=== PATIENT | male | born 1985 | race Caucasian/White ===

== ENCOUNTER 2016-08-31 18:53 | Inpatient (IN) | payer OTHER ==
[~2016-08-31] VITALS: Ht 182.9 cm; Wt 63.5 kg
[2016-08-31 19:00] VITALS: BP 94/54
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
[2016-08-31] MEDS ORDERED: NACL 0.9% 1,000 ML IV ONE ×3 (19:30→22:45)
[2016-08-31] MEDS ORDERED: LORazepam 2 MG/ML VIAL IM ONE (19:35)
--- NOTE | 2016-08-31 21:12 | NUR ---
PT CONTINUES TO REFUSE IV FLUIDS AND TO PROVIDE A URINE SAMPLE. IV STARTED ON R FOREARM, BLOOD DRAWN WELL. NIKOLAI ATKINSON NOTIFIED.
--- NOTE | 2016-08-31 22:04 | NUR ---
FAMILY AT BED SIDE, PT RECEIVING IV FLUIDS, ER MD SPEAKING TO FAMILY.
[2016-08-31] MEDS ORDERED: PIPERACILLIN/TAZOBACTAM 3.375 GM in DEXTROSE 5% 50 ML IV ONE (22:10)
[2016-08-31] MEDS ORDERED: VANCOMYCIN 1,000 MG in DEXTROSE 5% 250 ML IV ONE (22:10)
[2016-08-31] MEDS ORDERED: LORazepam 2 MG/ML VIAL IVP ONE (22:15)
[2016-08-31] MEDS ORDERED: ACETAMINOPHEN EXTRA STRENGTH 500 MG TAB PO ONE (22:15)
[2016-08-31] MEDS ORDERED: HALOPERIDOL IM 5 MG/ML VIAL IM ONE (22:15)
[2016-08-31] MEDS ORDERED: PIPERACILLIN/TAZOBACTAM 3.375 GM VIAL IV ONE ×2 (22:21→22:23)
[2016-08-31] MEDS ORDERED: VANCOMYCIN 1,000 MG VIAL ONE (22:23)
[2016-08-31] MEDS ORDERED: NACL 0.9% 1,000 ML IV SCH (22:45)
[2016-08-31] MEDS ORDERED: HYDROcodone/APAP 5/325 MG 1 TAB TAB PO PRN (22:45)
[2016-08-31] MEDS ORDERED: LORazepam 2 MG/ML VIAL IVP PRN (22:45)
[2016-08-31] MEDS ORDERED: ONDANSETRON 4 MG/2 ML VIAL IVP PRN (22:45)
[2016-08-31] MEDS ORDERED: ACETAMINOPHEN 325 MG TAB PO PRN (22:45)
[2016-08-31] MEDS ORDERED: MORPHINE SULFATE 2 MG/ML SYR IVP PRN (22:45)
--- NOTE | 2016-08-31 23:02 | NUR ---
PT SLEEPING, VSS, RECEIVING IV FLUIDS AND ANTIBIOTICS. FAMILY LEFT, PT ON MONITOR WILL CONT TO MONITOR.
--- NOTE | 2016-08-31 23:16 | NUR ---
Patient will be admitted to care of [facility]. Admited to TELEMETRY. Will go to room 121 B. Belongings list completed. Report to MARISOL BARRIOS.
[2016-09-01 00:05] VITALS: BP 60/36
--- NOTE | 2016-09-01 00:05 | NUR ---
PT ARRIVED ON UNIT IN UNSTABLE CONDITION. MARISOL AZUL STATED THAT PTS SBP UPON LEAVING ER WAS 89, BOLUS ORDERED BY MD CHESTER NOT GIVEN, IV BAG AT BEDSIDE. BLOOD PRESSURE 60/36, HR 97, O2 SAT 95 ON ROOM AIR. TEMP 99. PLACED PT IN [place] AND STARTED IV BOLUS TO RT HAND 20G IV PATENT, ASYMPTOMATIC, INTACT. NO SOB, NO SIGNS OF DISTRESS PT IS ALOC, WITHDRAWS TO PAINFUL STIMULI. SKIN IS INTACT. ORIENTED PT TO ROOM AND UNIT PLACED PT ON FALL PRECAUTIONS. PLAN OF CARE DISCUSSED WITH PT. SAFETY MEASURES IN PLACE. AT BEDSIDE MONITORING PT.
--- NOTE | 2016-09-01 00:09 | NUR ---
PT TRASFERRED TO TELEMETRY ROOM 121 B, AACOMPANIED BY RN AND EMT. C ARCHITECT IN BED, NO S/S OF DISTRESS NOTE DURING TRASPORT.
--- NOTE | 2016-09-01 00:35 | NUR ---
BP 66/38, HR 95, 02 98. PAGED MD ROMO CLARIFYING PLANT OPERATOR FOR MD CELAYA TO MAKE AWARE, ORDERED BOLUS AND NS AT 200 ML/HR. WILL CONTINUE TO MONITOR.
[2016-09-01] MEDS ORDERED: NACL 0.9% 1,000 ML IV ONE (00:40)
[2016-09-01] MEDS ORDERED: NACL 0.9% 1,000 ML IV SCH (00:40)
--- NOTE | 2016-09-01 00:46 | NUR ---
BP 81/41, HR 89, T 98.4, O2 96 ON ROOM AIR. PLACED PT ON 2L O2 NC.
--- NOTE | 2016-09-01 01:00 | NUR ---
STARTED NEW IV TO RT FA 20G AND STARTED 2ND BOLUS.
[2016-09-01 01:16] VITALS: BP 81/55
--- NOTE | 2016-09-01 01:16 | NUR ---
BP 81/55, HR83, O2 100 ON 2L O2 NC, TEMP 99. NO SOB, NO SIGNS OF DISTRESS. IV SITES ASYMPTOMATIC, INTACT, PATENT, BOLUS AND IVF RUNNING. SAFETY MEASURES IN PLACE. CALL LIGHT WITHIN REACH. WILL CONTINUE TO MONITOR.
--- NOTE | 2016-09-01 01:42 | NUR ---
CALLED PTS MOTHER MIHAI BARILLAS TO OBTAIN PTS INFORMATION FOR ADMISSION, NO ANSWER. LEFT A VOICEMAIL WITH CALL BACK NUMBER.
[2016-09-01 01:46] VITALS: BP 98/64
--- NOTE | 2016-09-01 01:46 | NUR ---
2ND BOLUS FINISHED. BP 98/64, HR 84, O2 SAT 100 ON 2L O2 NC, TEMP 98.6. NO SOB, NO SIGNS OF DISTRESS. IV SITES ASYMPTOMATIC, INTACT, PATENT, IVF RUNNING. SAFETY MEASURES IN PLACE. CALL LIGHT WITHIN REACH. WILL CONTINUE TO MONITOR.
[2016-09-01 02:06] VITALS: BP 60/36
[2016-09-01 04:00] VITALS: BP 95/54
--- NOTE | 2016-09-01 04:35 | NUR ---
VS STABLE. NO SOB, NO SIGNS OF DISTRESS. IV SITES ASYMPTOMATIC, INTACT, PATENT, IVF RUNNING. PT LETHARGIC, HARD TO WAKE. SAFETY MEASURES IN PLACE. CALL LIGHT WITHIN REACH. WILL CONTINUE TO MONITOR.
[2016-09-01] MEDS ORDERED: PIPERACILLIN/TAZOBACTAM 3.375 GM VIAL IV ONE (04:55)
[2016-09-01] MEDS ORDERED: PIPERACILLIN/TAZOBACTAM 3.375 GM in DEXTROSE 5% 50 ML IV SCH (05:00)
[2016-09-01] MEDS ORDERED: ACETAMINOPHEN 325 MG TAB PO PRN (05:20)
[2016-09-01] MEDS ORDERED: HYDROcodone/APAP 5/325 MG 1 TAB TAB PO PRN (05:25)
[2016-09-01] MEDS ORDERED: ONDANSETRON 4 MG/2 ML VIAL IVP PRN (05:30)
[2016-09-01] MEDS ORDERED: LORazepam 2 MG/ML VIAL IVP PRN (05:30)
[2016-09-01] MEDS ORDERED: MORPHINE SULFATE 2 MG/ML SYR IVP PRN (05:30)
--- NOTE | 2016-09-01 07:21 | NUR ---
ENDORSED PT IN STABLE CONDITION TO MARISOL HICKS. ALL NEEDS HAVE BEEN MET AT THIS TIME.
--- NOTE | 2016-09-01 07:45 | NUR ---
PT SLEEPING IN BED COMFORTABLY. PT HAD HIS EYES CLOSED ALL THE TIME. PT NOT ANSWERING QUESTIONS WHEN SPOKEN TO. SHIFT SHIFT ASSESSMENT DONE AND CHARTED. PT COVERED SELF UP AFTER WITH LINEN BUT NEVER SPOKE A WORD. PLAN OF CARE, MEDS, TREATMENTS, MEDS AND SAFETY DISCUSSED WITH PT WITH NO RESPONSE FROM PT. WILL CONTINUE TO MONITOR PT.
[2016-09-01 08:00] VITALS: BP 96/61
[2016-09-01] MEDS: NACL 0.9% 1,000 ML IV SCH ×4 (08:07→18:32)
--- NOTE | 2016-09-01 08:30 | NUR ---
PT'S MOTHER PHONED NIGHT RN LEFT HER A MESSAGE TO CALL BACK. PT'S MOTHER UNABLE TO GIVE MUCH INFORMATION RE PT'S MEDICAL HX PT DOES NOT LIVE WITH HER AND IS HOMELESS.
[2016-09-01] MEDS ORDERED: ENOXAPARIN 40 MG/0.4 ML SYR SUBQ SCH (09:00)
--- NOTE | 2016-09-01 09:30 | NUR ---
PT'S MOTHER PHONE AGAIN AND VOICED CONCERN RE PT'S CONDITION. PT'S MOTHER ABLE TO GIVE LIST OF PT'S MEDS AT DISCHARGE FROM [facility]. PT'S MOTHER WOULD LIKE MD TO PHONE HER RE PT'S CONDITION AND UPDATES.
[2016-09-01] MEDS: ENOXAPARIN 40 MG/0.4 ML SYR SUBQ SCH (09:46)
--- NOTE | 2016-09-01 11:08 | NUR ---
PATIENT HAS BEEN SCREENED AND CATEGORIZED MODERATE NUTRITION RISK. PATIENT WILL BE SEEN WITHIN 3-5 DAYS OF ADMISSION. 09/03/16-09/05/[address]
--- NOTE | 2016-09-01 11:30 | NUR ---
PT'S RM FLOOR NOTED TO BE WET AND NOTED IV OUT. PT REFUSED TO HAVE PRESSURE APPLIED TO THE BLEEDING IV SITE AT 1ST BUT FINALLY WAS ABLE TO APPLY PRESSURE PRESSURE DRESSINGS ON IT AND SWITCHED IV TO THE REMAINING SALINE LOCK AND KERLIX APPLIED TO SAME. PT REFUSED TO HAVE THE BED LINENS CHANGED BUT ALLOWED TO HAVE BLANKET CHANGED. PT ALSO REFUSED VITAL SIGNS TAKEN AND HAVE TELE LEADS ON. WILL CONTINUE TO MONITOR PT..
[2016-09-01] MEDS ORDERED: SEROQUEL400 MG PO (11:57)
[2016-09-01] MEDS ORDERED: SEROQUEL200 MG PO (11:57)
[2016-09-01] MEDS ORDERED: CELEXA20 MG PO (11:57)
--- NOTE | 2016-09-01 12:15 | NUR ---
DR. CELAYA WAS IN AND NOTIFIED OF PT'S MOTHER WANTING TO TALK TO HIM RE PT'S CONDITION. PT REFUSED TO HAVE VITAL SIGNS DONE AT THIS TIME.
--- NOTE | 2016-09-01 12:32 | NUR ---
CM NOTE PER PARLOR MAID KYLE EXT [phone], REVIEWS SHOULD GO TO BOTH [facility] AND [facility]. INITIAL REVIEW SENT TO [facility] FAX# [phone] PH# [place] PH# [phone] [place] [phone] AND TO [place] FAX# [phone] PH# [phone] OPTION 2,1
[2016-09-01] MEDS: PIPER/TAZO 3.375GM/D5W PREMIX 50 ML IV SCH ×2 (12:49→20:16)
--- NOTE | 2016-09-01 14:30 | NUR ---
PT NOTED TO BE SLEEPING WHEN CHECKED.
--- NOTE | 2016-09-01 16:35 | NUR ---
PT CONTINUE TO REFUSE TO HAVE VITAL SIGNS TAKEN AND TO RE APPLY TELE LEADS. PT ALSO REFUSED TO HAVE BED SHEETS CHANGED. PT CONTINUE TO VOID ON THE FLOOR. DR. SIFUENTES WAS IN TO ASSESS PT BUT PT REFUSED AND STATED THAT HE WAS SLEEPING OFF WHATEVER MED HE HAD IN HIS BODY. WILL CONTINUE TO CHECK ON PT.
--- NOTE | 2016-09-01 16:40 | NUR ---
PT REFUSED TO HAVE LAB DRAW DONE.
--- NOTE | 2016-09-01 18:43 | NUR ---
DR. CELAYA WAS IN AND NOTIFIED THAT PT WAS REFUSING TAKING OF VITAL SIGNS, LAB DRAWS AND PUTTING HIM BACK ON TELEMETRY. PT SLEEPING AT THIS TIME.
--- NOTE | 2016-09-01 18:50 | NUR ---
PT'S SISTER AND MOTHER WERE IN. THEY ENCOURAGED PT TO HAVE LAB DRAWS DONE BUT PT CONTINUED TO REFUSED. REMINDED PT ALSO NOT TO VOID ON THE FLOOR AND TO GO TO THE BATHROOM. PT CONTINUE TO REFUSE TELE , VITAL SIGNS AND CHANGING OF LINENS.
--- NOTE | 2016-09-01 19:25 | NUR ---
REPORT GIVEN TO SOPHIE DAMON. PT SLEEPING AT THIS TIME.
--- NOTE | 2016-09-01 19:26 | NUR ---
RECEIVED PT IN STABLE CONDITION FROM MARISOL HICKS. NO SOB, NO SIGNS OF DISTRESS. PT IS AOX4, AMBULATORY. SKIN IS INTACT. PT WITH 20G IV TO RT FA ASYMPTOMATIC, INTACT, PATENT, IVF RUNNING. PT DENIES PAIN AT THIS TIME. FAMILY AT BEDSIDE. PT ATE WHOLE DINNER TRAY. PTS BED DIRTY, DRIED BLOOD NOTED ON SHEETS, PT REFUSED TO HAVE SHEETS CHANGED. PT REFUSED TO ALLOW ME TO TAKE VS OR PUT ON TELE BOX. EDUCATED PT ON WHY WE NEED TO MONITOR HIS VS AND HEART RHYTHM WITH TELE BOX, PT BECAME AGITATED AND STILL REFUSED. PLAN OF CARE DISCUSSED WITH PT. SAFETY MEASURES IN PLACE. CALL LIGHT WITHIN REACH. WILL CONTINUE TO MONITOR.
--- NOTE | 2016-09-01 20:19 | NUR ---
PT REFUSED SEROQUEL, PT ALLOWED ME TO HANG ZOSYN. IV SITE ASYMPTOMATIC, INTACT, PATENT, IVF RUNNING. NO SOB, NO SIGNS OF DISTRESS. PT DENIES PAIN AT THIS TIME. PLAN OF CARE DISCUSSED WITH PT. SAFETY MEASURES IN PLACE. CALL LIGHT WITHIN REACH. WILL CONTINUE TO MONITOR.
[2016-09-01] MEDS ORDERED: QUEtiapine FUMARATE 100 MG TAB PO SCH (21:00)
--- NOTE | 2016-09-01 22:33 | NUR ---
PT ASLEEP IN BED. NO SOB, NO SIGNS OF DISTRESS. IV SITE ASYMPTOMATIC, INTACT, PATENT, IVF RUNNING. SAFETY MEASURES IN PLACE. CALL LIGHT WITHIN REACH. WILL CONTINUE TO MONITOR.
--- NOTE | 2016-09-02 | NUR ---
ASKED PT TO CHECK VS AND PLACE TELE MONITOR ON PT. PT BECAME AGITATED, PT REFUSED VS AND TELE MONITOR AND STATED LEAVE ME ALONE." NO SOB, NO SIGNS OF DISTRESS. IV SITE ASYMPTOMATIC, INTACT, PATENT, IVF RUNNING. PT DENIES PAIN AT THIS TIME. PLAN OF CARE DISCUSSED WITH PT. SAFETY MEASURES IN PLACE. CALL LIGHT WITHIN REACH. WILL CONTINUE TO MONITOR.
[2016-09-02] MEDS: NACL 0.9% 1,000 ML IV SCH (01:20)
--- NOTE | 2016-09-02 04:24 | NUR ---
PT REFUSED TELE MONITOR AND VS AGAIN. PT ALSO REFUSED FOR ME TO CHANGE THE BED LINENS, PT STATED HE DID NOT WANT TO GET UP SINCE HIS LEGS HURT, OFFERED PT PAIN MEDICATION, PT REFUSED. EDUCATED PT ON WHY HE NEEDS THE TELE MONITOR AND HIS VS CHECKED, PT STILL REFUSED. NO SOB, NO SIGNS OF DISTRESS. SAFETY MEASURES IN PLACE. CALL LIGHT WITHIN REACH. WILL CONTINUE TO MONITOR.
[2016-09-02] MEDS: PIPER/TAZO 3.375GM/D5W PREMIX 50 ML IV SCH (04:58)
--- NOTE | 2016-09-02 07:28 | NUR ---
ENDORSED PT IN STABLE CONDITION TO MARISOL THURMAN. ALL NEEDS HAVE BEEN MET AT THIS TIME.
--- NOTE | 2016-09-02 07:30 | NUR ---
RECEIVED REPORT FROM GLAZIER STRUCTURAL GLASS RN. PT IS SLEEPING BUT EASILY AWAKING BY INITIAL ASSESSMENT. ON ROOM AIR, NO S/S OF RESPIRATORY DISTRESS NOTED. PT REFUSED VITALS TAKEN AND TELE MONITORING. EDUCATION GIVEN, PT STILL REFUSED.IV TO RIGHT FA, SITE INTACT AND PATENT. SKIN INTACT, DRIED BLOOD NOTED ON SHEET, PT REFUSED TO CHANGE IT.SAFETY MEASURES IN PLACE, CALL LIGHT IN REACH, WILL CONTINUE TO MONITOR.
--- NOTE | 2016-09-02 08:30 | NUR ---
PT HAD THE WHOLE BREAKFAST TRAY.
--- NOTE | 2016-09-02 08:52 | NUR ---
CM NOTE CONCURRENT REVIEW SENT TO [facility] FAX# [phone] PH# [place] PH# [phone] [place] [phone] AND TO [facility] FAX# [phone] PH# [phone] OPTION 2,1
[2016-09-02] MEDS ORDERED: CITALOPRAM 20 MG TAB PO SCH (09:00)
[2016-09-02] MEDS ORDERED: QUEtiapine FUMARATE 100 MG TAB PO SCH (09:00)
[2016-09-02] MEDS: ENOXAPARIN 40 MG/0.4 ML SYR SUBQ SCH (09:34)
--- NOTE | 2016-09-02 11:48 | NUR ---
PT SLEEPING IN BED, NO S/S OF RESPIRATORY DISTRESS NOTED. WILL CONTINUE TO MONITOR.
--- NOTE | 2016-09-02 12:15 | NUR ---
PT ATE THE WHOLE LUNCH TRAY.
--- NOTE | 2016-09-02 13:03 | NUR ---
SS NOTE: I ATTEMPTED TO SPEAK WITH PT BEDSIDE BUT PT REFUSED. PT STATED THAT HE JUST WANTED TO SLEEP AND DOES NOT WANT TO BE BOTHERED.
--- NOTE | 2016-09-02 13:59 | NUR ---
1330 ATTEMPTED TO SPEAK WITH PT AND HE SAID HE WAS TIRED AND PULLED SHEET OVER HIS HEAD. INFORMED PT THAT HE IS DISCHARGED AND HE REFUSED TO DISCUSS THE DISCHARGE. PT REFUSED TO SPEAK TO SW EARLIER. INFORMED PT THAT RESOURCES WOULD BE PROVIDED FOR HIM AND AT THIS TIME PHYSICIAN HAS DEEMED HIM MEDICALLY STABLE AND HE WILL BE PROVIDED WITH DISCHARGE INSTRUCTIONS BY NURSE. PT REMAINED WITH THE SHEET COVERING HIS HEAD.
--- NOTE | 2016-09-02 14:15 | NUR ---
PT SLEEPING IN BED. NO SOB
--- NOTE | 2016-09-02 14:30 | NUR ---
SS NOTE: I ATTEMPTED TO SPEAK WITH PT BEDSIDE AGAIN, PT HAD HIS BEDSHEET COVERING HIS HEAD. I PROVIDED HIM WITH SUBSTANCE ABUSE AND HOMELESS RESOURCES.
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
--- NOTE | 2016-09-02 16:00 | NUR ---
SPOKE WITH PT'S MOTHER, PER PT'S MOTHER SHE WILL COME TO GLAZING MACHINE OPERATOR QUAN.
--- NOTE | 2016-09-02 16:30 | NUR ---
PT AWAKE, ALERT. FAMILY AT BEDSIDE TO CRYSTAL GRINDER PT, PT WALKED OFF UNIT WITH FAMILY. NO S/S OF RESPIRATORY DISTRESS NOTED. PT REMAINS IN STABLE CONDITION. ALL PERSONAL BELONGINGS WITH PT.
== END 2016-09-02 16:30 | disposition home or self-care (01) | DRG 753 ==
LOC: MED 18:53 → UNDOADMIN 22:52 → MTU 22:52 → OBSVTOIN 09-01 11:56
PROVIDERS: ADMIT Internal Medicine Pulmonary Disease; ATTEND Internal Medicine Pulmonary Disease
DX: F31.5 Bipolar disorder, current episode depressed, severe, with psychotic features (principal); F11.20 Opioid dependence, uncomplicated; F12.20 Cannabis dependence, uncomplicated; Z91.5 Personal history of self-harm; F15.20 Other stimulant dependence, uncomplicated; D72.829 Elevated white blood cell count, unspecified; R45.4 Irritability and anger; R45.1 Restlessness and agitation; R41.0 Disorientation, unspecified; Z59.0 Homelessness; F20.9 Schizophrenia, unspecified
CPT/HCPCS: 96361; 96365; 96372; 96375; 99291; G0378